=== PATIENT | female | born 1960 | race Caucasian/White ===

== ENCOUNTER → 2017-04-19 | Outpatient (CLI) | payer MEDICARE, MEDICAID ==
[~2017-04-19] MED LIST: ALBUTEROL2 PUFFS/17 IN; ALLOPURINOL100 MG PO; AMLO5TAB PO; ATORVASTATIN CA10 MG PO; AURALGAN OT10 ML/BOT OT; AZATHIOPRINE50 MG PO; AZITHROMYCIN250 MG PO; BACTRIM DS 8001 TAB PO; BACTROBAN2% TP; CARVEDILOL3.125 M1 PO; COLCRYS0.6 MG PO; DELTASONE5 MG PO; FLEXERIL10 MG PO; FUROSEMIDE 40MG40 M1 PO; KEFLEX 500MG.500 MG PO; LEVOTHYROXIN0.112 M1 PO; LISINOPRIL10 MG PO; MEDROL 4MG. DOSE4 MG PO; NORVASC 10MG. T10 MG PO; OYSTER SHELL C500 MG PO; PREDNISONE 10MG10 MG PO; SEPTRA DS 800 M1 TAB PO; SERTRALINE 50MG50 MG PO; SYMBICORT1 AER IH; VICODIN 5/500 T1 TAB PO; VOLTAREN75 MG PO; ZITHROMAX 250M250 MG PO
--- NOTE | 2017-04-19 10:21 | RADIOLOGY REPORT PS360 ---
CHEST(2 VIEWS-NOT PORTABLE) COMPARISON: PA and lateral chest 03/20/2016 HISTORY: Shortness of breath TECHNIQUE: PA and lateral chest FINDINGS: The lung asif are well expanded and appear clear of infiltrate. The cardiac silhouette and vascularity are normal. There is no pleural fluid. There are stable mild nonrecent wedging of T8 IMPRESSION: Nonacute chest findings
== END ==
LOC: RAD 09:41
DX: R06.02 Shortness of breath (principal)